=== PATIENT | female | born 1960 | race Caucasian/White ===

== ENCOUNTER 2022-10-27 09:00 | Outpatient (CLI) | payer BC | END 2022-10-27 09:01 | disposition home or self-care (01) | LOC: NAV CT 09:00 | PROVIDERS: ATTEND Family Medicine | DX: R09.02 Hypoxemia (principal); R91.8 Other nonspecific abnormal finding of lung field; Z87.891 Personal history of nicotine dependence | CPT/HCPCS: 71260 ==